=== PATIENT | male | born 1990 | race Caucasian/White ===

== ENCOUNTER 2018-10-22 20:47 | Emergency (ER) | payer MEDICAID ==
[2018-10-22 21:09] VITALS: BP 141/87
--- NOTE | 2018-10-22 21:14 | EDM.PDOC ---
ED HPI GENERAL MEDICAL PROBLEM - General Chief Complaint: Lower Extremity Injury/Pain Stated Complaint: ANKLE PAIN Time Seen by Provider: 10/22/18 21:14 - History of Present Illness INITIAL COMMENTS - FREE TEXT/NARRATIVE: 28-year-old male presents emergency room with left ankle pain. The patient twisted his ankle and after stepping on his Xbox control he has pain that shoots up his leg most of his pain is around his ankle and his foot he has no problems with chronic ankle instability other issues like that. He has not tried anything for this this just occurred a short time ago. Left Ankle Pain Score (Numeric/FACES): 7 - Related Data Allergies Allergy/AdvReac Type Severity Reaction Status Date / Time penicillin Allergy Shortness Verified 10/22/18 21:07 of Breath sertraline HCl [From Zoloft] Allergy Difficulty Verified 10/22/18 21:07 Swallowing Home Meds: Home Meds . [No Known Home Meds] 10/22/18 [History] Past Medical History HEENT History: Reports: Impaired Vision Other HEENT History: wears glasses Psychiatric History: Reports: Anxiety, Bipolar - Past Surgical History Musculoskeletal Surgical History: Reports: Other (See Below) Review of Systems - Review of Systems Review Of Systems: See Below Respiratory: Reports: No Symptoms Cardiovascular: Reports: No Symptoms GI/Abdominal: Reports: No Symptoms Genitourinary: Reports: No Symptoms Musculoskeletal: Reports: No Symptoms Skin: Reports: No Symptoms Neurological: Reports: No Symptoms ED EXAM, GENERAL - Physical Exam Exam: See Below Exam Limited By: No Limitations General Appearance: Alert, No Apparent Distress Head: Atraumatic Neck: Normal Inspection Respiratory/Chest: No Respiratory Distress, Lungs Clear, Normal Breath Sounds Cardiovascular: Normal Peripheral Pulses, Regular Rate, Rhythm Extremities: Other (Semination his left lower leg shows tenderness around the lateral malleolus at the he also has some tenderness the bottom of his foot and the side of the calcaneus anterior talofibular ligament. Palpation up and down the lower leg tibia and fibula reveals no discomfort.) Course - Vital Signs Last Recorded V/S: Last Vital Signs Temp 36.1 C 10/22/18 21:07 Pulse 96 10/22/18 21:07 Resp 18 10/22/18 21:07 BP 141/87 H 10/22/18 21:07 Pulse Ox 98 10/22/18 21:07 - Orders/Labs/Meds Orders: Active Orders 24 hr Category Date Time Status Ankle Min 3V Lt [CR] Stat Exams 10/22/18 21:25 Taken Foot Comp Min 3V Lt [CR] Stat Exams 10/22/18 21:25 Taken Durable Medical Equipment for Discharge [DME for Oth 10/22/18 21:51 Ordered Discharge] [COMM] Stat - Re-Assessments/Exams Free Text/Narrative Re-Assessment/Exam: 10/22/18 22:37 X-ray examination of his foot and ankle are unremarkable. He is placed in a Western walker and feels much better. Departure - Departure Time of Disposition: 22:39 Disposition: Home, Self-Care 01 Clinical Impression: Left ankle sprain - Discharge Information Referrals: Zachery Harding MD [Primary Care Provider] - Forms: ED Department Discharge Additional Instructions: [facility] emergency room with any questions or problems or worsening symptoms. Follow-up with your regular healthcare provider in 2 weeks. Wear the walking boot until then. Tylenol or ibuprofen as needed for discomfort. - My Orders Last 24 Hours: My Active Orders 10/22/18 21:25 Ankle Min 3V Lt [CR] Stat Foot Comp Min 3V Lt [CR] Stat 10/22/18 21:51 Durable Medical Equipment for Discharge [DME for Discharge] [COMM] Stat - Assessment/Plan Last 24 Hours: My Active Orders 10/22/18 21:25 Ankle Min 3V Lt [CR] Stat Foot Comp Min 3V Lt [CR] Stat 10/22/18 21:51 Durable Medical Equipment for Discharge [DME for Discharge] [COMM] Stat
--- NOTE | 2018-10-23 06:22 | CR ---
Left ankle: Four views of the left ankle were obtained. Comparison: No previous ankle study. Small calcification is seen off the inferior fibula which appears well-corticated and old. Ankle mortise is symmetric. No acute fracture, dislocation or other bony abnormality is seen. Mild soft tissue swelling is noted. Impression: 1. Incidental findings. No acute bony abnormality is seen. Diagnostic code #2
--- NOTE | 2018-10-23 06:22 | CR ---
Left foot: Three views of the left foot were obtained. Comparison: No prior foot exam. Joint spaces are preserved. Small calcification is again noted off the inferior fibula. No calcaneal spurs are seen. No acute fracture or other bony abnormality is seen. Impression: 1. No acute bony abnormality is appreciated on the left foot exam. Diagnostic code #1
== END 2018-10-22 22:50 | disposition home or self-care (01) ==
LOC: JD.ED 20:47
DX: S93.402A Sprain of unspecified ligament of left ankle, initial encounter (principal); X50.1XXA Overexertion from prolonged static or awkward postures, initial encounter; Z88.0 Allergy status to penicillin; Z88.8 Allergy status to other drugs, medicaments and biological substances
CPT/HCPCS: 73610-26-LT; 73610-LT; 73630-26-LT; 73630-LT; 99282; 99283-25

== ENCOUNTER 2019-06-25 20:04 | Emergency (ER) | payer SELFPAY ==
[2019-06-25 20:18] VITALS: BP 135/82; PULSE 80
[2019-06-25] MEDS ORDERED: Ketorolac 60 MG/2 ML SDV IM ONE (21:11)
--- NOTE | 2019-06-25 21:25 | EDM.PDOC ---
ED HPI GENERAL MEDICAL PROBLEM - General Chief Complaint: Lower Extremity Injury/Pain Stated Complaint: BOTH KNEES HURT Time Seen by Provider: 06/25/19 20:12 Source of Information: Reports: Patient, RN Notes Reviewed History Limitations: Reports: No Limitations - History of Present Illness INITIAL COMMENTS - FREE TEXT/NARRATIVE: Patient is a 29-year-old male who presents to the ED for the evaluation of bilateral knee pain. The patient notes that last night while he was sitting in his chair, he developed bilateral knee pain. He did take 1 tablet of 200 mg ibuprofen last night, for pain relief however this did not help much. And he did ice the knees on and off, the ice seem to help quite a bit, but the pain got better once the ice wore off. He notes that the pain is a 10 out of 10, he states that the pain is worse after he has been sitting for a while, and then gets up to walk. He notes that there is more pain with ambulation, than there is with rest. He notes that the knees feel better after they rest a while. He states that this morning pain was at its worst. He did not take any Tylenol ibuprofen for this today. He denies any slips trips or falls recently. He denies have any other prior injuries to these knees other than a ACL repair of his right knee. There is no obvious bruising, but there is slight swelling noted on the medial right knee. He notes most of his pain is in the superior and medial portions of both knees. Bilateral Knee Pain Score (Numeric/FACES): 10 - Related Data Allergies Allergy/AdvReac Type Severity Reaction Status Date / Time penicillin Allergy Shortness Verified 10/22/18 21:07 of Breath sertraline HCl [From Zoloft] Allergy Difficulty Verified 10/22/18 21:07 Swallowing Home Meds: Home Meds Venlafaxine [Effexor XR] 150 mg PO DAILY 06/25/19 [History] Past Medical History HEENT History: Reports: Impaired Vision Other HEENT History: wears glasses Psychiatric History: Reports: Anxiety, Bipolar, Depression - Infectious Disease History Infectious Disease History: Reports: Chicken Pox - Past Surgical History HEENT Surgical History: Reports: Adenoidectomy, Tonsillectomy Musculoskeletal Surgical History: Reports: Other (See Below) Other Musculoskeletal Surgeries/Procedures:: knee surgery R) ACL repair - Past Imaging History Past Imaging History: Reports: Xray Social & Family History - Tobacco Use Smoking Status *Q: Light Tobacco Smoker Years of Tobacco use: 10 Packs/Tins Daily: 0.1 - Caffeine Use Caffeine Use: Reports: Coffee, Energy Drinks - Recreational Drug Use Recreational Drug Use: No Review of Systems - Review of Systems Review Of Systems: See Below Constitutional: Denies: Chills, Fever Respiratory: Denies: Shortness of Breath Cardiovascular: Denies: Chest Pain Musculoskeletal: Reports: Joint Pain (bilateral knee pain), Joint Swelling (R medial knee swelling). Denies: Leg Pain, Foot Pain, Muscle Stiffness Skin: Denies: Bruising ED EXAM, GENERAL - Physical Exam Exam: See Below Exam Limited By: No Limitations General Appearance: Alert, WD/WN, No Apparent Distress Respiratory/Chest: No Respiratory Distress, Lungs Clear, Normal Breath Sounds, No Accessory Muscle Use, Chest Non-Tender Cardiovascular: Normal Peripheral Pulses, Regular Rate, Rhythm, No Murmur Peripheral Pulses: 3+: Dorsalis Pedis (L), Dorsalis Pedis (R) Extremities: No Pedal Edema, Normal Capillary Refill, Joint Swelling (mild swelling noted to R superiomedial knee. ), Limited Range of Motion (of knees d/ t pain. There is pain with palpation to bilateral joints). No: Leg Pain, Increased Warmth, Redness Neurological: Alert, Oriented, Normal Cognition, No Motor/Sensory Deficits Psychiatric: Normal Affect, Normal Mood Skin Exam: Warm, Dry, Intact, Normal Color, No Rash Course - Vital Signs Last Recorded V/S: Last Vital Signs Temp 97.4 F 06/25/19 20:16 Pulse 80 06/25/19 20:16 Resp 18 06/25/19 20:16 BP 135/82 06/25/19 20:16 Pulse Ox 98 06/25/19 20:16 - Orders/Labs/Meds Orders: Active Orders 24 hr Category Date Time Status Knee 3V Lt [CR] Stat Exams 06/25/19 20:21 Ordered Knee 3V Rt [CR] Stat Exams 06/25/19 20:21 Ordered Meds: Medications Discontinued Medications Generic Name Dose Route Start Last Admin Trade Name Freq PRN Reason Stop Dose Admin Ketorolac Tromethamine 60 mg 06/25/19 21:11 Toradol IM 06/25/19 21:12 ONETIME ONE - Re-Assessments/Exams Free Text/Narrative Re-Assessment/Exam: 06/25/19 21:27 Patient presents to the ED for the evaluation of bilateral knee pain. Did order x-rays for evaluation, however these elicit no acute bony abnormalities or fractures at this time. Patient is tender around the entire knee joint mainly, there is no one area that hurts worse than the other. Did order 60 mg IM Toradol for initial management. Will review x-rays with Dr. Frausto. Patient will likely be discharged home with general recommendations and follow- up with his primary care physician for further management. Departure - Departure Time of Disposition: 21:29 Disposition: Home, Self-Care 01 Condition: Fair Clinical Impression: Bilateral anterior knee pain - Discharge Information *PRESCRIPTION DRUG MONITORING PROGRAM REVIEWED*: No *COPY OF PRESCRIPTION DRUG MONITORING REPORT IN PATIENT HARMONY: No Instructions: Knee Pain, Adult, [id number] Referrals: Blue Melendez Jr, MD [Primary Care Provider] - Forms: ED Department Discharge Additional Instructions: You have been evaluated in the ED for your bilateral knee pain. Your x-rays demonstrated no acute fracture or other bony abnormality. Please use ice as tolerated to the affected area. Please try to elevate the affected area to relieve swelling. You may take ibuprofen 600mg q6 hrs for pain relief. Please do so until you have a tolerable level of pain with activity. Do not exceed 3200mg ibuprofen in a 24 hour time period. If your pain is not much better in around 1 week's time, recommend you follow- up with your primary care physician for further management. You would greatly benefit from trying to lose a little bit of weight, please try to modify your diet, and engage in more physical activity to help facilitate this. Please return to ED if your symptoms should change or worsen. Sepsis Event Note - Evaluation Sepsis Screening Result: No Definite Risk - Focused Exam Vital Signs: Vital Signs Temp Pulse Resp BP Pulse Ox 06/25/19 20:16 97.4 F 80 18 135/82 98 Date Exam was Performed: 06/25/19 Time Exam was Performed: 21:34 - My Orders Last 24 Hours: My Active Orders 06/25/19 20:21 Knee 3V Lt [CR] Stat Knee 3V Rt [CR] Stat - Assessment/Plan Last 24 Hours: My Active Orders 06/25/19 20:21 Knee 3V Lt [CR] Stat Knee 3V Rt [CR] Stat
--- NOTE | 2019-06-26 10:21 | CR ---
Right knee: AP, lateral and sunrise patellar views were obtained. Bony irregularity is seen within the medial femoral condyle. This likely relates to old osteochondral defect. Questionable mild lateral joint space narrowing. No acute fracture is seen. Patellofemoral joint is normal. No joint effusion is seen. Impression: 1. Questionable mild lateral joint space narrowing. 2. Slight articular irregularity within the medial femoral condyle possibly due to old osteochondral defect. Diagnostic code #3 This report was dictated in [place] Standard Time
--- NOTE | 2019-06-26 10:21 | CR ---
Left knee: AP and lateral views of the left knee were obtained as well as bilateral sunrise patellar views. Medial and lateral joint spaces are preserved in height. Patellofemoral joints appear within normal limits. No left-sided joint effusion is seen. No fracture or other abnormality is seen. Impression: 1. No abnormality is seen on left knee exam. Diagnostic code #1 This report was dictated in [place] Standard Time
== END 2019-06-25 21:50 | disposition home or self-care (01) ==
LOC: JD.ED 20:04
DX: M25.562 Pain in left knee (principal); M25.561 Pain in right knee; F32.9 Major depressive disorder, single episode, unspecified; F17.210 Nicotine dependence, cigarettes, uncomplicated; Z79.899 Other long term (current) drug therapy; Z88.0 Allergy status to penicillin; Z88.8 Allergy status to other drugs, medicaments and biological substances
CPT/HCPCS: 73562; 96372; 99283; J1885

== ENCOUNTER 2020-06-07 05:25 | Emergency (ER) | payer MEDICAID ==
[2020-06-07 05:37] VITALS: BP 141/88; PULSE 77
[2020-06-07] MEDS ORDERED: Acetaminophen/HYDROcodone 325-5 MG Tab PO ONE (06:03)
--- NOTE | 2020-06-07 06:08 | EDM.PDOC ---
ED HPI GENERAL MEDICAL PROBLEM - General Chief Complaint: ENT Problem Stated Complaint: TOOTH PAIN Time Seen by Provider: 06/07/20 05:36 Source of Information: Reports: Patient History Limitations: Reports: No Limitations - History of Present Illness INITIAL COMMENTS - FREE TEXT/NARRATIVE: Mr. Pacheco is a pleasant 30-year-old gentleman who now presents to the ED with a lower right toothache. He states that he broke a lower right molar when he bit down on his tongue piercing about 1 week ago. He states that he has been experiencing pain to the tooth on and off since. He states that he has been taking ibuprofen, without adequate relief of his pain. No recent fever or dental drainage. Here in the ED, the patient is found to be hemodynamically stable, afebrile, saturating 100% on room air. Other than his toothache, the patient denies having a recent fever, chills, sore throat, ear pain, nasal or sinus congestion, cough, dyspnea, chest pain, palpitations, nausea, vomiting, constipation, diarrhea, abdominal pain, urinary symptoms, recent weight gain or weight loss, recent bloody bowel movements or black bowel movements, recent joint aches, headaches, or rashes. The patient's PCP is Dr. Blue Melendez. He has not received an influenza vaccine this season, but agreed to receive one here this morning. Right Upper Tooth/Teeth Pain Score (Numeric/FACES): 10 - Related Data Allergies Allergy/AdvReac Type Severity Reaction Status Date / Time penicillin Allergy Shortness Verified 06/07/20 05:36 of Breath sertraline HCl [From Zoloft] Allergy Difficulty Verified 06/07/20 05:36 Swallowing Home Meds: Home Meds Venlafaxine [Effexor XR] 150 mg PO DAILY 06/25/19 [History] Acetaminophen/HYDROcodone [Burdette 325-5 MG] 1 - 2 tab PO Q6H PRN #10 tablet 06/07/20 [Rx] Past Medical History HEENT History: Reports: Impaired Vision Other HEENT History: wears glasses Cardiovascular History: Reports: None Respiratory History: Reports: None Gastrointestinal History: Reports: None Genitourinary History: Reports: None Musculoskeletal History: Reports: None Neurological History: Reports: None Psychiatric History: Reports: Anxiety, Bipolar, Depression Endocrine/Metabolic History: Reports: Obesity/BMI 30+ Hematologic History: Reports: None Oncologic (Cancer) History: Reports: None Dermatologic History: Reports: None - Infectious Disease History Infectious Disease History: Reports: Chicken Pox - Past Surgical History HEENT Surgical History: Reports: Adenoidectomy, Tonsillectomy Musculoskeletal Surgical History: Reports: Arthroscopic Knee, Other (See Below) Other Musculoskeletal Surgeries/Procedures:: knee surgery R) ACL repair - Past Imaging History Past Imaging History: Reports: Xray Social & Family History - Tobacco Use Tobacco Use Status *Q: Never Tobacco User - Caffeine Use Caffeine Use: Reports: Coffee, Energy Drinks - Recreational Drug Use Recreational Drug Use: No ED ROS ENT - Review of Systems Review Of Systems: Comprehensive ROS is negative, except as noted in HPI. ED EXAM, ENT - Physical Exam Exam: See Below Exam Limited By: No Limitations General Appearance: Alert, WD/WN, No Apparent Distress Eye Exam: Bilateral Eye: EOMI, Normal Inspection Ears: Normal External Exam, Hearing Grossly Normal Nose: Normal Inspection Mouth/Throat: Normal Inspection, Normal Gums, Normal Lips, Normal Oropharynx, Other (Posterior lingual corner of the lower right second molar is fractured off. No associated gingival swelling or drainage. Lower right third molar absent.) Head: Atraumatic, Normocephalic Neck: Normal Inspection, Supple, Non-Tender, Full Range of Motion. No: Lymphadenopathy (L), Lymphadenopathy (R) Course - Vital Signs Last Recorded V/S: Last Vital Signs Temp 35.9 C L 06/07/20 05:36 Pulse 77 06/07/20 05:36 Resp 17 06/07/20 05:36 BP 141/88 H 06/07/20 05:36 Pulse Ox 100 06/07/20 05:36 - Orders/Labs/Meds Meds: Medications Discontinued Medications Generic Name Dose Route Start Last Admin Trade Name Freq PRN Reason Stop Dose Admin Hydrocodone Bitart/Acetaminophen 2 tab 06/07/20 06:03 06/07/20 06:09 Burdette 325-5 Mg PO 06/07/20 06:04 2 tab ONETIME ONE Administration Influenza Virus Vaccine 60 mcg 06/07/20 06:15 06/07/20 06:16 Fluzone Quad [id number] Syringe IM 06/07/20 06:16 Not Given .ONCE ONE - Re-Assessments/Exams Free Text/Narrative Re-Assessment/Exam: 06/07/20 06:03 The patient will be given 2 tablets of Burdette here in the ED, and I will discharge him home with a small prescription for the same. I emphasized that he needs to follow-up with a dentist this week. Departure - Departure Time of Disposition: 06:03 Disposition: Home, Self-Care 01 Condition: Good Clinical Impression: Dentalgia - Discharge Information *PRESCRIPTION DRUG MONITORING PROGRAM REVIEWED*: Not Applicable *COPY OF PRESCRIPTION DRUG MONITORING REPORT IN PATIENT HARMONY: Not Applicable Prescriptions: Acetaminophen/HYDROcodone [Burdette 325-5 MG] 1 - 2 tab PO Q6H PRN #10 tablet PRN Reason: Pain (Severe 7-10) Referrals: Blue Melendez Jr, MD [Ordering Only Provider] - Forms: ED Department Discharge Additional Instructions: You were seen in the emergency room for a lower right toothache. On examination, part of your lower right second molar is broken off. There is no sign of an infection at this time. We recommend that you take [id number] ibuprofen, 3 tablets (600 mg) every 8 hours, with food, [id number]. You have been started on the opioid pain reliever Burdette, and a prescription for Burdette has been provided to you. You may take 1 to 2 tablets of Burdette up to every 6 hours, as needed for pain not relieved by ibuprofen. If you take Burdette, do not drive or operate heavy machinery for 12 hours afterwards. Burdette may cause constipation, so consider taking a stool softener. As discussed, it is very important that you see a dentist this week. If any other problems, please do not hesitate to return to the ER. You were given an influenza vaccine during your ER visit. Sepsis Event Note (ED) - Evaluation Sepsis Screening Result: No Definite Risk - Focused Exam Vital Signs: Vital Signs Temp Pulse Resp BP Pulse Ox 06/07/20 05:36 35.9 C L 77 17 141/88 H 100
[2020-06-07] MEDS ORDERED: FLU VACC QS2020-21(6MOS UP)/PF 60 MCG/0.5 ML SYRINGE IM ONE (06:15)
== END 2020-06-07 06:16 | disposition home or self-care (01) ==
LOC: JD.ED 05:25
DX: K08.89 Other specified disorders of teeth and supporting structures (principal); F41.9 Anxiety disorder, unspecified; F31.9 Bipolar disorder, unspecified; E66.9 Obesity, unspecified; Z90.49 Acquired absence of other specified parts of digestive tract; Z88.0 Allergy status to penicillin; Z88.8 Allergy status to other drugs, medicaments and biological substances; Z79.899 Other long term (current) drug therapy
CPT/HCPCS: 99282; A9270

== ENCOUNTER 2023-12-02 13:18 | Emergency (ER) | payer MEDICAID ==
[2023-12-02] MEDS: Ketorolac 60 MG/2 ML SDV IM ONE (17:29)
[2023-12-02 19:36] VITALS: BP 148/89; PULSE 69
== END 2023-12-02 17:32 | disposition home or self-care (01) ==
LOC: JD.ED 13:18
DX: M25.511 Pain in right shoulder (principal); G89.29 Other chronic pain; Z88.0 Allergy status to penicillin; Z88.8 Allergy status to other drugs, medicaments and biological substances; Z79.899 Other long term (current) drug therapy
CPT/HCPCS: 73030; 96372; 99283; J1885

== ENCOUNTER 2024-02-26 07:22 | Emergency (ER) | payer MEDICAID ==
[2024-02-26 08:59] LABS: CORONAVIRUS COVID-19 NAA NEGATIVE (NEGATIVE); INFLUENZA A NAA NEGATIVE (NEGATIVE); RESPIRATORY SYNCYTIAL VIR NAA NEGATIVE (NEGATIVE)
[2024-02-26 10:07] VITALS: BP 124/86; PULSE 95
== END 2024-02-26 10:05 | disposition home or self-care (01) ==
LOC: JD.ED 07:22
DX: J06.9 Acute upper respiratory infection, unspecified (principal); E66.9 Obesity, unspecified; Z88.8 Allergy status to other drugs, medicaments and biological substances; Z88.0 Allergy status to penicillin; Z68.42 Body mass index [BMI] 45.0-49.9, adult
CPT/HCPCS: 0241U; 71045; 87651; 99285

== ENCOUNTER 2024-07-03 11:14 | Emergency (ER) | payer MEDICAID ==
[2024-07-03] MEDS: Ketorolac 60 MG/2 ML SDV IM ONE (12:44)
[2024-07-03 13:39] VITALS: BP 104/89; PULSE 82
== END 2024-07-03 13:35 | disposition home or self-care (01) ==
LOC: SUPCPDRO 11:14 → JD.ED 11:14
DX: M25.551 Pain in right hip (principal); E66.9 Obesity, unspecified; Z90.89 Acquired absence of other organs; Z88.0 Allergy status to penicillin; Z88.8 Allergy status to other drugs, medicaments and biological substances; Z68.42 Body mass index [BMI] 45.0-49.9, adult; V49.50XA Passenger injured in collision with unspecified motor vehicles in traffic accident, initial encounter
CPT/HCPCS: 73502-26-RT; 73502-RT; 96372; 99283; 99284; J1885